=== PATIENT | female | born 1930 | race Caucasian/White ===

== ENCOUNTER 2017-02-05 14:16 | Inpatient (IN) | payer OTHER, MEDICAID ==
[~2017-02-05] VITALS: Ht 160 cm; Wt 93.4 kg
[~2017-02-05 14:16] MED LIST: AMIO200T7 PO; AMLO5TAB2 PO; CARV6.252 PO; DOCU250C14 PO; FAMO20TA8 PO; LACT10SO7 PO; RIVA10TA PO; SIMV10TA6 PO; VALS160T2 PO
--- NOTE | 2017-02-05 14:30 | NUR ---
pt is in room #1b. dr Huff evaluated the pt.
[2017-02-05] MEDS ORDERED: RIVA10TA PO (15:00)
[2017-02-05] MEDS ORDERED: BUDE10.22 INH (15:00)
[2017-02-05] MEDS ORDERED: IBUP-1955 PO (15:00)
[2017-02-05] MEDS ORDERED: VALS160T2 PO (15:00)
[2017-02-05] MEDS ORDERED: AMIO100T4 PO (15:00)
[2017-02-05] MEDS ORDERED: TRAZ-144 PO (15:00)
[2017-02-05] MEDS ORDERED: HYDR-4077 PO (15:00)
[2017-02-05] MEDS ORDERED: LEVO88TA5 PO (15:00)
[2017-02-05] MEDS ORDERED: FERR-58 PO (15:00)
[2017-02-05] MEDS ORDERED: METO25TA6 PO (15:00)
[2017-02-05] MEDS ORDERED: OSCAL PO (15:00)
[2017-02-05] MEDS ORDERED: CHOL40002 PO (15:00)
[2017-02-05] MEDS ORDERED: OLAN2.5T3 PO (15:00)
[2017-02-05] MEDS ORDERED: DULO60CA45 PO (15:00)
[2017-02-05] MEDS ORDERED: ACETAMINOPHEN 325 MG TABLET PO ONE (15:00)
[2017-02-05] MEDS ORDERED: SIMV10TA2 PO (15:00)
[2017-02-05] MEDS ORDERED: NIFE30TA89 PO (15:00)
[2017-02-05] MEDS ORDERED: HYDR-3326 PO (15:00)
[2017-02-05] MEDS ORDERED: BUSPAR PO (15:00)
[2017-02-05] MEDS ORDERED: ACETAMINOPHEN ES 500 MG TABLET ONE (15:08)
[2017-02-05 15:25] LABS: BASOPHILS # (AUTO) 0.3 K/uL (0.0-8.0); BASOPHILS % (AUTO) 2.8 % (0.0-2.0); EOSINOPHILS # (AUTO) 0.1 K/uL (0.0-0.7); EOSINOPHILS % (AUTO) 0.7 % (0.0-7.0); HEMATOCRIT 35.1 % (37-47); HEMOGLOBIN 11.5 G/DL (12.0-16.0); LYMPHOCYTES # (AUTO) 0.8 K/UL (0.8-4.8); LYMPHOCYTES % (AUTO) 7.6 % (20.5-51.5); MEAN CORPUSCULAR HEMOGLOBIN 29.5 UUG (27.0-31.0); MEAN CORPUSCULAR HGB CONC 33 g/dL (32.0-37.0); MEAN CORPUSCULAR VOLUME 89.7 FL (81.0-99.0); MONOCYTES # (AUTO) 0.5 K/UL (0.1-1.30); MONOCYTES % (AUTO) 5.1 % (0.0-11.0); NEUTROPHILS % (AUTO) 83.8 % (38.5-71.5); PLATELET COUNT (AUTO) 640 K/UL (150-450); RED BLOOD CELL COUNT(AUTO) 3.91 MIL/UL (4.2-5.4); WHITE BLOOD COUNT (AUTO) 10.7 K/UL (4.0-11.2)
[2017-02-05 15:35] LABS: CARBON DIOXIDE 25 mmol/L (21-32); CHLORIDE 97 mmol/L (98-107); CREATININE 1.6 mg/dL (0.6-1.3); GLUCOSE 129 mg/dL (74-106); POTASSIUM 4.7 mmol/L (3.5-5.1); UREA NITROGEN, BLOOD 15 mg/dL (7-18)
[2017-02-05 15:41] LABS: ACETAMINOPHEN 12.1 ug/mL (10-30); ALANINE AMINOTRANSFERASE 9 U/L (14-59); ALKALINE PHOSPHATASE 138 U/L (50-136); ASPARTATE AMINOTRANSFERASE 13 U/L (15-37); BAND % (MANUAL) 3 % (0-10); BILIRUBIN,DIRECT 0.2 mg/dL (0.0-0.2); BILIRUBIN,TOTAL 0.5 mg/dL (0.2-1.0); LYMPHOCYTES % (MANUAL) 9 % (20-40); MONOCYTES % (MANUAL) 10 % (2-10); NEUTROPHILS % (MANUAL) 78 % (42-75); TOTAL PROTEIN, SERUM 7.6 g/dL (6.4-8.2)
[2017-02-05 15:43] LABS: ETHANOL < 3 MG/DL (0-0)
[2017-02-05 16:53] LABS: *BILIRUBIN,URIN NEGATIVE (NEGATIVE); *BLOOD, URINE NEGATIVE (NEGATIVE); *COLOR,URINE YELLOW (YELLOW); *KETONES,URINE NEGATIVE (NEGATIVE); *PROTEIN,URINE 2+ (NEGATIVE); *UROBILINOGEN,URINE 0.2 E.U./dl (NORMAL); LEUKOCYTE ESTERASE ,URINE TRACE (NEGATIVE); NITRITE, URINE NEGATIVE (NEGATIVE); PH,URINE 7.5 (5.0-8.0); UGLUCOSE NEGATIVE (NEGATIVE)
[2017-02-05 16:59] LABS: *CLARITY,URINE HAZY (CLEAR)
[2017-02-05 17:01] LABS: RBC,URINE 0-3 /HPF (0-3)
[2017-02-05 17:02] LABS: *AMPHETAMINE, URINE NEGATIVE (NEGATIVE); *BARBITURATE, URINE NEGATIVE (NEGATIVE); *CANNABINOID, URINE NEGATIVE (NEGATIVE); *COCCAINE, URINE NEGATIVE (NEGATIVE); *OPIATE, URINE POSITIVE (NEGATIVE); *PHENCYCLIDINE SCREEN,URINE NEGATIVE (NEGATIVE); MUCUS,URINE FEW /LPF (0-FEW); SQUAMOUS EPITHELIAL CELL,UR FEW /HPF (NONE SEEN)
--- NOTE | 2017-02-05 17:56 | NUR ---
PT IS IN ROOM #1B WITH HER FRANCOISE.. DANIA COURTNEY EVALUATED THE PT.
--- NOTE | 2017-02-05 19:14 | NUR ---
Assumed care of patient from Philippe PEREZ. Patient stable, awaiting MHU admission. Spoke with Jose Casas LCSW, patient is authorized for admission to MHU , approved by insurance.
--- NOTE | 2017-02-05 19:44 | NUR ---
Pt. admitted to MHU , under care of Dr. Funk/Dr. Will. Dx: Psychosis. On 5150 hold starting 02/05/17. Report to MHU given by TAVO briceno RN, Philippe Pepe Belongs List completed, all belongings with patient taken to unit.
[2017-02-05] MEDS ORDERED: TEMAZEPAM 7.5 MG CAPSULE PO PRN (20:15)
[2017-02-05] MEDS ORDERED: CLONAZEPAM 0.5 MG TABLET PO SCH ×2 (20:15→21:30)
[2017-02-05] MEDS ORDERED: MAGNESIUM HYDROXIDE 30 ML LIQUID UDC PO PRN (20:15)
--- NOTE | 2017-02-05 20:30 | NUR ---
GPS: Patient admitted from ER to MHU room 137b , under care of Dr. Funk/Dr. Will. Dx: Psychosis. On 5150 hold starting 02/05/17.alert and oriented x3 ambulate with assistance.hx of multiple falls.c/o right shoulder pain.tylenol 650 mg po given. Belongs List completed.b/p 158/88 pulse 88 temp 98.0 resp 20 sat 96% in room air.assisted to use restroom voided yellow urine. sitting in ian chair near nursing station for safety.
[2017-02-05 21:28] VITALS: BP 158/88
[2017-02-05 21:48] VITALS: BP 158/88
[2017-02-05] MEDS ORDERED: ACETAMINOPHEN 325 MG TABLET ONE (22:01)
[2017-02-05] MEDS ORDERED: TEMAZEPAM 7.5 MG CAPSULE ONE (22:02)
[2017-02-05] MEDS: ACETAMINOPHEN 325 MG TABLET PO PRN (22:03)
--- NOTE | 2017-02-05 22:05 | NUR ---
GPS: PATIENT C/O INSOMNIA. RESTORIL 7.5 MG PO GIVEN.
[2017-02-05] MEDS ORDERED: METOPROLOL TARTRATE 25 MG TABLET PO ONE (22:06)
--- NOTE | 2017-02-05 22:10 | NUR ---
GPS: PATIENT C/O RIGHT SHOULDER PAIN. TYLENOL 650 MG PO GIVEN.
[2017-02-05] MEDS ORDERED: METOPROLOL TARTRATE 25 MG TABLET PO SCH (22:15)
[2017-02-05] MEDS ORDERED: METOPROLOL TARTRATE 25 MG TABLET ONE (22:22)
--- NOTE | 2017-02-05 23:10 | NUR ---
PATIENT STATED I AM FEELING LITTLE BETTER NOW. PRN EFFECTIVE.
--- NOTE | 2017-02-05 23:10 | NUR ---
PATIENT STILL AWAKE. PRN NOT EFFECTIVE FOR SLEEP.
[2017-02-06] MEDS: HYDROCODONE/APAP 5-325MG TABLET PO PRN ×3 (02:14→17:24)
--- NOTE | 2017-02-06 02:15 | NUR ---
KLONOPIN 0.25 MG GIVEN FOR ANXIETY.
--- NOTE | 2017-02-06 02:16 | NUR ---
PATIENT C/O RIGHT SHOULDER PAIN. NORCO 5/325 MG PO 1 TAB GIVEN FOR PAIN.
[2017-02-06] MEDS ORDERED: CLONAZEPAM 0.5 MG TABLET ONE (02:18)
[2017-02-06] MEDS ORDERED: HYDROCODONE/APAP 5-325MG TABLET ONE (02:18)
--- NOTE | 2017-02-06 03:15 | NUR ---
PATIENT STATED I AM FEELING CALM NOW. PRN EFFECTIVE FOR ANXIETY.
--- NOTE | 2017-02-06 03:16 | NUR ---
GPS: PATIENT STATED I AM FEELING BETTER NOW. PRN EFFECTIVE FOR PAIN.
--- NOTE | 2017-02-06 06:34 | NUR ---
GPS: REMAIN CALM AND COOPERATIVE WITH MEDS AND CARE.ON HIGH RISK OF FALL.ASSISTED WITH ADL'S. NO AGITATION NOTED THIS TIME. CONTINUE PLAN OF CARE.SLEPT 01:45 HRS THROUGH THE NIGHT AFTER SLEEPING MEDS GIVEN.
[2017-02-06 07:30] VITALS: BP 173/65
[2017-02-06] MEDS ORDERED: OSCAL 500 MG PO SCH (09:00)
[2017-02-06] MEDS ORDERED: RIVAROXABAN 10 MG TABLET PO SCH ×2 (09:00)
[2017-02-06] MEDS: NIFEdipine XL 30 MG TABSR PO SCH (09:07)
[2017-02-06] MEDS: LEVOTHYROXINE SODIUM 88 MCG TABLET PO SCH (09:07)
[2017-02-06] MEDS: FERROUS SULFATE 325 MG TABEC PO SCH (09:08)
[2017-02-06] MEDS: METOPROLOL TARTRATE 25 MG TABLET PO SCH ×2 (09:08→20:40)
[2017-02-06] MEDS: hydrALAZINE HCL 50 MG TABLET PO SCH ×2 (09:08→17:24)
[2017-02-06] MEDS: CALCIUM CARBONATE 500 MG TABLET PO SCH ×2 (09:10→20:36)
[2017-02-06] MEDS: CHOLECALCIFEROL 1,000 UNIT TABLET PO SCH (09:10)
[2017-02-06] MEDS: AMIODARONE HCL 200 MG TABLET PO SCH (09:17)
[2017-02-06] MEDS: busPIRone 5 MG TABLET PO SCH ×2 (13:00→17:24)
--- NOTE | 2017-02-06 16:30 | NUR ---
Pt.was Tx.from MHU to room #224 for Isolation reason-MRSA/contact isol./Pt A/A/Ox3, no s/s of acute distress ,denies pain @ time.Right shoulder post op icision covered with steri strips,C/D/I no s/s of inflammation noted.sitter 1:1.
[2017-02-06 17:20] VITALS: BP 197/73
[2017-02-06] MEDS: DULOXETINE 60 MG CAPSULE.DR PO SCH (17:41)
[2017-02-06 18:30] VITALS: BP 154/68
--- NOTE | 2017-02-06 18:30 | NUR ---
FAMILY MEMBERS AT BEDSIDE WAS UPDATED WITH PT.CONDITION AND PLAN OF CARE,NO S/S OF DISTRESS,PT.DENIES PAIN @ TIME.
[2017-02-06 20:00] VITALS: BP 175/66
[2017-02-06] MEDS: SIMVASTATIN 10 MG TABLET PO SCH (20:36)
[2017-02-06] MEDS: OLANZAPINE 2.5 MG TABLET PO SCH (20:36)
[2017-02-06] MEDS: MUPIROCIN 2% OINT 22 GM TUBE NS SCH (20:51)
[2017-02-06] MEDS: TRAZODONE 100 MG TABLET PO PRN (20:52)
[2017-02-07 04:00] VITALS: BP 165/65
--- NOTE | 2017-02-07 05:54 | NUR ---
PT SLEPT INTERMITTENTLY. WAS GIVEN TRAZODONE REQUESTED AND PRESCRIBED. ON 1:1 SITTER FOR SAFETY. NO SI. SAFETY MAINTAINED. DENIES PAIN. CALL LIGHT WITHIN REACH.
--- NOTE | 2017-02-07 06:59 | NUR ---
SLEPT 8 HRS TOTAL.
[2017-02-07] MEDS: CALCIUM CARBONATE 500 MG TABLET PO SCH ×2 (07:59→20:30)
[2017-02-07] MEDS: LEVOTHYROXINE SODIUM 88 MCG TABLET PO SCH (07:59)
[2017-02-07] MEDS: AMIODARONE HCL 200 MG TABLET PO SCH (08:00)
--- NOTE | 2017-02-07 08:00 | NUR ---
Pt is in no acute distress. 1:1 sitter for safety due to pt is on a HOLD. Pt noted right surgical incision with steri strips. No redness noted on site. Pt unable to have a FULL ROM on right shoulder.
[2017-02-07] MEDS: DULOXETINE 60 MG CAPSULE.DR PO SCH (08:01)
[2017-02-07] MEDS: HYDROCODONE/APAP 5-325MG TABLET PO PRN ×3 (08:01→22:41)
[2017-02-07] MEDS: NIFEdipine XL 30 MG TABSR PO SCH (08:01)
[2017-02-07] MEDS: CHOLECALCIFEROL 1,000 UNIT TABLET PO SCH (08:01)
[2017-02-07] MEDS: busPIRone 5 MG TABLET PO SCH ×3 (08:02→17:07)
[2017-02-07] MEDS: FERROUS SULFATE 325 MG TABEC PO SCH (08:02)
[2017-02-07] MEDS: MUPIROCIN 2% OINT 22 GM TUBE NS SCH ×2 (08:02→20:30)
[2017-02-07] MEDS: hydrALAZINE HCL 50 MG TABLET PO SCH ×2 (08:02→17:07)
[2017-02-07] MEDS: METOPROLOL TARTRATE 25 MG TABLET PO SCH ×2 (08:02→20:30)
--- NOTE | 2017-02-07 11:52 | NUR ---
UR Note: ALIDA called N Shahrzad Gunderson and left clinicals on her voicemail. Patient was initially authorized for 02/05/17-02/07/17 with review due today. Awaiting authorization for additional days. AUTH# [id number] Addendum: 02/07/17 at 1556 by SOBEIDA IRWIN Received a call from Shahrzad stating that the patient has been authorized for 2 additional days (02/08/17-02/09/17) with review due on 02/09/17.
[2017-02-07 12:00] VITALS: BP 148/58
[2017-02-07] MEDS: MAG HYDROX/AL HYDROX/SIMETH 30 ML LIQUID UDC PO PRN ×2 (15:08→20:17)
--- NOTE | 2017-02-07 15:42 | NUR ---
Initial discharge instructions: The patient resides at her apartment [[address] [place] [address]; ] independently. She stated that she would like to return home upon discharge. SW will speak with patient, family, and MD regarding most appropriate discharge plan. SS will form a safe and proper discharge.
[2017-02-07 15:44] VITALS: BP 147/59
[2017-02-07] MEDS: RIVAROXABAN 15 MG TABLET PO SCH (17:08)
--- NOTE | 2017-02-07 17:20 | NUR ---
Pt was cooperative today. Pt took all her pills without any hesitation. Pt states that applying ice pack on her right surgical shoulder was effective on controlling her pain in addition to her pain Meds. Pt is in no acute distress. 1:1 sitter at bedside for safety effective. PT is in no acute distress.
[2017-02-07] MEDS: CLONAZEPAM 0.5 MG TABLET PO PRN (19:06)
--- NOTE | 2017-02-07 20:00 | NUR ---
RECEIVED PATIENT AWAKE IN BED WITH SITTER AT BEDSIDE. PATIENT IS A/O X3. C/O DISCOMFORT IN UPPER ABDOMEN. PATIENT C/O STOMACH ACHE BUT CONTINUES TO EAT. VSS. STERI-STRIPS NOTED TO RIGHT SHOULDER, C/D/I. NO RESP. DISTRESS NOTED. VSS. BED ALARM ON, CALL LIGHT IN REACH. ALL NEEDS ATTENDED. WILL CONTINUE TO MONITOR AND ASSESS.
--- NOTE | 2017-02-07 20:20 | NUR ---
PATIENT GIVEN MYLANTA 30ML PO PRN FOR UPSET STOMACH. WILL CONTINUE TO MONITOR.
[2017-02-07 20:27] VITALS: BP 151/63
[2017-02-07] MEDS: OLANZAPINE 2.5 MG TABLET PO SCH (20:30)
[2017-02-07] MEDS: SIMVASTATIN 10 MG TABLET PO SCH (20:30)
[2017-02-07 23:00] VITALS: BP 138/60
[2017-02-07] MEDS: TRAZODONE 100 MG TABLET PO PRN (23:19)
[2017-02-08] MEDS: hydrALAZINE HCL 50 MG TABLET PO SCH ×2 (08:38→16:35)
[2017-02-08] MEDS: FERROUS SULFATE 325 MG TABEC PO SCH (08:38)
[2017-02-08] MEDS: METOPROLOL TARTRATE 25 MG TABLET PO SCH ×2 (08:39→20:42)
[2017-02-08] MEDS: CHOLECALCIFEROL 1,000 UNIT TABLET PO SCH (08:39)
[2017-02-08] MEDS: AMIODARONE HCL 200 MG TABLET PO SCH (08:39)
[2017-02-08] MEDS: LEVOTHYROXINE SODIUM 88 MCG TABLET PO SCH (08:39)
[2017-02-08] MEDS: busPIRone 5 MG TABLET PO SCH ×3 (08:39→16:35)
[2017-02-08] MEDS: CALCIUM CARBONATE 500 MG TABLET PO SCH ×2 (08:40→20:38)
[2017-02-08] MEDS: NIFEdipine XL 30 MG TABSR PO SCH (08:40)
[2017-02-08] MEDS: DULOXETINE 60 MG CAPSULE.DR PO SCH (08:40)
[2017-02-08] MEDS: HYDROCODONE/APAP 5-325MG TABLET PO PRN ×3 (08:40→20:38)
[2017-02-08] MEDS: MUPIROCIN 2% OINT 22 GM TUBE NS SCH ×2 (08:41→20:41)
[2017-02-08 09:00] VITALS: BP 163/71
[2017-02-08 12:00] VITALS: BP 134/57
--- NOTE | 2017-02-08 13:00 | NUR ---
Spoke with SUMANTH CESPEDES (DAUGHTER) tel [phone] Gave DPOA copy and Advance decretive copy put on chart. Daughter wanted to speak with health care law specialist. Called EDMAR no answer. Gave Sunita phone # to SUMANTH and planed to call her tomorrow.
--- NOTE | 2017-02-08 14:00 | NUR ---
Notified DR lakhani to adjust bp meds due to pts bp has been on the SBPs of 150s. Awaiting further orders.
[2017-02-08 15:08] VITALS: BP 130/85
[2017-02-08] MEDS: RIVAROXABAN 15 MG TABLET PO SCH (16:37)
[2017-02-08] MEDS: ACETAMINOPHEN 325 MG TABLET PO PRN ×2 (18:25→23:00)
--- NOTE | 2017-02-08 18:44 | NUR ---
Pt has been alert and oriented x 4. Pt takes pills fine. Pt forgetfull at times and ask same questions all over again. Call light is within reach.
--- NOTE | 2017-02-08 20:00 | NUR ---
PATIENT AWAKE IN BED WITH SITTER AT BEDSIDE. PATIENT IS A/O X3. FORGETFUL AT TIMES. C/O PAIN 4/10 IN RIGHT SHOULDER. PATIENT AWARE THAT PAIN MEDICATION IS NOT DUE AT THIS TIME. VERBALIZED UNDERSTANDING. VSS. CALL LIGHT IN REACH. BED ALARM ON, ALL NEEDS ATTENDED. WILL CONTINUE TO MONITOR.
[2017-02-08] MEDS: OLANZAPINE 2.5 MG TABLET PO SCH (20:38)
[2017-02-08] MEDS: SIMVASTATIN 10 MG TABLET PO SCH (20:39)
--- NOTE | 2017-02-08 20:45 | NUR ---
PATIENT GIVEN NORCO 1 TAB PO PRN FOR PAIN. PATIENT COOPERATIVE AND COMPLIANT WITH HS MEDS. SITTER AT BEDSIDE. BED ALARM ON. CALL LIGHT IN REACH. ALL NEEDS ATTENDED. WILL CONTINUE TO MONITOR.
[2017-02-08] MEDS: TRAZODONE 100 MG TABLET PO PRN (23:00)
[2017-02-09] MEDS: HYDROCODONE/APAP 5-325MG TABLET PO PRN ×2 (05:45→20:38)
--- NOTE | 2017-02-09 05:45 | NUR ---
PATIENT AWAKE IN BED. C/O PAIN IN RIGHT SHOULDER. PATIENT GIVEN NORCO 1 TAB PO PRN FOR PAIN. WILL CONTINUE TO MONITOR. PATIENT NOTIFIED THAT PICTURE NEEDS TO BE TAKEN OF RIGHT SHOULDER FOR PICTURE DAY BUT PATIENT REFUSED FOR PATIENT TO BE TAKEN. PATIENT STATED, " I AM NOT HERE FOR MY SHOULDER, SO I DON'T NEED ANY PICTURE TAKEN." INFORMED PATIENT ON IMPORTANCE OF PICTURES BUT PATIENT STILL REFUSED.
[2017-02-09 05:46] VITALS: BP 170/63
--- NOTE | 2017-02-09 05:53 | NUR ---
PATIENTS BLOOD PRESSURE 170/63. ALL OTHER VSS. PATIENT BLOOD PRESSURES MEDS DUE THIS MORNING. NOTIFIED, DENTAL AMALGAM PROCESSOR AND PATIENT GIVEN ROUTINE HYDRALAZINE 50MG PO. WILL CONTINUE TO MONITOR AND ASSESS.
[2017-02-09] MEDS: hydrALAZINE HCL 50 MG TABLET PO SCH ×2 (05:58→16:59)
[2017-02-09 06:17] VITALS: BP 145/65
[2017-02-09 06:41] LABS: BASOPHILS # (AUTO) 0.1 K/uL (0.0-8.0); BASOPHILS % (AUTO) 0.8 % (0.0-2.0); EOSINOPHILS # (AUTO) 0.7 K/uL (0.0-0.7); EOSINOPHILS % (AUTO) 7.9 % (0.0-7.0); HEMATOCRIT 32.4 % (37-47); HEMOGLOBIN 10.6 G/DL (12.0-16.0); LYMPHOCYTES # (AUTO) 1.8 K/UL (0.8-4.8); LYMPHOCYTES % (AUTO) 21.5 % (20.5-51.5); MEAN CORPUSCULAR HEMOGLOBIN 29.3 UUG (27.0-31.0); MEAN CORPUSCULAR HGB CONC 33 g/dL (32.0-37.0); MEAN CORPUSCULAR VOLUME 89.2 FL (81.0-99.0); MONOCYTES # (AUTO) 0.9 K/UL (0.1-1.30); MONOCYTES % (AUTO) 10.4 % (0.0-11.0); NEUTROPHILS # (AUTO) 4.8 K/UL (1.8-8.9); NEUTROPHILS % (AUTO) 59.4 % (38.5-71.5); PLATELET COUNT (AUTO) 542 K/UL (150-450); RED BLOOD CELL COUNT(AUTO) 3.63 MIL/UL (4.2-5.4); WHITE BLOOD COUNT (AUTO) 8.3 K/UL (4.0-11.2)
--- NOTE | 2017-02-09 06:50 | NUR ---
PATIENT BP WNL. BP 145/65. ALL OTHER VSS. PATIENT SLEPT A TOTAL OF 4 HOURS AND 30 MINUTES. ALL NEEDS ATTENDED. WILL CONTINUE TO MONITOR.
[2017-02-09 06:55] LABS: ALANINE AMINOTRANSFERASE 12 U/L (14-59); ALKALINE PHOSPHATASE 113 U/L (50-136); ASPARTATE AMINOTRANSFERASE 11 U/L (15-37); BILIRUBIN,TOTAL 0.3 mg/dL (0.2-1.0); CARBON DIOXIDE 29 mmol/L (21-32); CHLORIDE 97 mmol/L (98-107); CREATININE 1.9 mg/dL (0.6-1.3); GLUCOSE 109 mg/dL (74-106); MAGNESIUM 2.1 mg/dL (1.8-2.4); PHOSPHOROUS 4.1 mg/dL (2.5-4.9); POTASSIUM 4.4 mmol/L (3.5-5.1); TOTAL PROTEIN, SERUM 6.7 g/dL (6.4-8.2); UREA NITROGEN, BLOOD 26 mg/dL (7-18)
[2017-02-09] MEDS: MUPIROCIN 2% OINT 22 GM TUBE NS SCH ×2 (09:28→20:38)
[2017-02-09] MEDS: CHOLECALCIFEROL 1,000 UNIT TABLET PO SCH (09:28)
[2017-02-09] MEDS: DULOXETINE 60 MG CAPSULE.DR PO SCH (09:29)
[2017-02-09] MEDS: METOPROLOL TARTRATE 25 MG TABLET PO SCH ×2 (09:29→20:38)
[2017-02-09] MEDS: busPIRone 5 MG TABLET PO SCH ×3 (09:29→16:59)
[2017-02-09] MEDS: CALCIUM CARBONATE 500 MG TABLET PO SCH ×2 (09:29→20:38)
[2017-02-09] MEDS: AMIODARONE HCL 200 MG TABLET PO SCH (09:29)
[2017-02-09] MEDS: LEVOTHYROXINE SODIUM 88 MCG TABLET PO SCH (09:30)
[2017-02-09] MEDS: NIFEdipine XL 30 MG TABSR PO SCH (09:30)
[2017-02-09] MEDS: FERROUS SULFATE 325 MG TABEC PO SCH (09:30)
[2017-02-09] MEDS: ACETAMINOPHEN 325 MG TABLET PO PRN (11:18)
[2017-02-09 11:30] VITALS: BP 159/61
--- NOTE | 2017-02-09 12:36 | NUR ---
UR Note: ALIDA called MHDaisy Gunderson and left clinicals on her voicemail. Patient was authorized for 02/08/17-02/09/17 with review due today (02/09/17). Awaiting authorization for additional days. AUTH# [id number]
[2017-02-09 15:42] VITALS: BP 135/53
[2017-02-09] MEDS: RIVAROXABAN 15 MG TABLET PO SCH (17:02)
--- NOTE | 2017-02-09 18:53 | NUR ---
PT IS LAYING IN BED COMFORTABLY. NO S/S OF RESPIRATORY DISTRESS NOTED. NO PAIN NOTED. ALL SAFETY NEEDS ARE MET. 1:1 SITTER FOR SAFETY. PT IS CALM AND COOPERATIVE.
--- NOTE | 2017-02-09 19:45 | NUR ---
RECEIVED PATIENT AWAKE IN BED. A/O X3. SITTER AT BEDSIDE. VSS. CALL LIGHT IN REACH. ALL NEEDS ATTENDED. WILL CONTINUE TO MONITOR.
[2017-02-09 20:00] VITALS: BP 138/56
[2017-02-09] MEDS: SIMVASTATIN 10 MG TABLET PO SCH (20:38)
[2017-02-09] MEDS: OLANZAPINE 2.5 MG TABLET PO SCH (20:38)
[2017-02-10] MEDS: ACETAMINOPHEN 325 MG TABLET PO PRN ×2 (00:11→15:46)
[2017-02-10] MEDS: TRAZODONE 100 MG TABLET PO PRN (00:11)
[2017-02-10] MEDS: CLONAZEPAM 0.5 MG TABLET PO PRN (03:31)
[2017-02-10 07:51] VITALS: BP 138/65
[2017-02-10] MEDS: DULOXETINE 60 MG CAPSULE.DR PO SCH (08:17)
[2017-02-10] MEDS: busPIRone 5 MG TABLET PO SCH ×3 (08:17→16:00)
[2017-02-10] MEDS: FERROUS SULFATE 325 MG TABEC PO SCH (08:17)
[2017-02-10] MEDS: CHOLECALCIFEROL 1,000 UNIT TABLET PO SCH (08:17)
[2017-02-10] MEDS: AMIODARONE HCL 200 MG TABLET PO SCH (08:17)
[2017-02-10] MEDS: CALCIUM CARBONATE 500 MG TABLET PO SCH ×2 (08:17→20:12)
[2017-02-10] MEDS: hydrALAZINE HCL 50 MG TABLET PO SCH ×3 (08:17→22:00)
[2017-02-10] MEDS: LEVOTHYROXINE SODIUM 88 MCG TABLET PO SCH (08:18)
[2017-02-10] MEDS: MUPIROCIN 2% OINT 22 GM TUBE NS SCH ×2 (08:18→20:13)
[2017-02-10] MEDS: NIFEdipine XL 30 MG TABSR PO SCH (08:18)
[2017-02-10] MEDS: METOPROLOL TARTRATE 25 MG TABLET PO SCH ×2 (08:18→20:13)
[2017-02-10] MEDS: IV NS 1000 ML 1,000 ML IV PRN (10:58)
[2017-02-10 13:01] LABS: *BILIRUBIN,URIN NEGATIVE (NEGATIVE); *BLOOD, URINE NEGATIVE (NEGATIVE); *CLARITY,URINE CLOUDY (CLEAR); *COLOR,URINE YELLOW (YELLOW); *KETONES,URINE NEGATIVE (NEGATIVE); *PROTEIN,URINE TRACE (NEGATIVE); *UROBILINOGEN,URINE 0.2 E.U./dl (NORMAL); LEUKOCYTE ESTERASE ,URINE TRACE (NEGATIVE); NITRITE, URINE POSITIVE (NEGATIVE); PH,URINE 6.5 (5.0-8.0); UGLUCOSE NEGATIVE (NEGATIVE)
[2017-02-10 13:13] LABS: RBC,URINE 0-3 /HPF (0-3)
[2017-02-10 13:14] LABS: BACTERIA,URINE MANY /HPF (NONE SEEN); SQUAMOUS EPITHELIAL CELL,UR FEW /HPF (NONE SEEN); WBC,URINE 20-50 /HPF (0-3)
[2017-02-10 15:56] VITALS: BP 143/53
--- NOTE | 2017-02-10 16:25 | NUR ---
UR Note: ALIDA spoke with ISAIAS Gunderson and she has authorized the patient for an additional day (02/10/17) with review due tomorrow, 02/11/17. AUTH# [id number] Addendum: 02/10/17 at 1631 by SOBEIDA IRWIN ALIDA spoke with ISAIAS Gunderson informing her that the patient is requiring SNF placement. Shahrzad referred LAIDA to [facility] to obtain authorization for SNF placement. ALIDA spoke with Rochelle Richardson at [facility] who stated that she will assist in finding SNF placement but that she is requiring a physician's note recommending SNF placement for the patient. ALIDA has asked the MD for this. Rochelle has faxed a list of contracted facilities to ALIDA to initiate placement process. ALIDA will fax these facilities.
[2017-02-10] MEDS: RIVAROXABAN 15 MG TABLET PO SCH (17:05)
--- NOTE | 2017-02-10 19:00 | NUR ---
PATIENT ALERT AWAKE, CONT ON CONTACT ISOLATION FOR MRSA NARES, CONT ON 1;1 SITTER FOR SAFETY, NO COMPLAIN OF PAIN AT THIS TIME, CONT TO MONITOR.
[2017-02-10 19:43] VITALS: BP 149/53
[2017-02-10] MEDS: SIMVASTATIN 10 MG TABLET PO SCH (20:12)
[2017-02-10] MEDS: OLANZAPINE 2.5 MG TABLET PO SCH (20:12)
[2017-02-10] MEDS: HYDROCODONE/APAP 5-325MG TABLET PO PRN (20:57)
--- NOTE | 2017-02-10 21:30 | NUR ---
PATIENT COMPLAIN OF CONSTIPATION, NOTIFY DR. SHINE WITH ORDER.
[2017-02-10] MEDS: MIRALAX 17 GM POWD.PACK PO SCH (21:56)
[2017-02-10] MEDS ORDERED: MIRALAX 17 GM POWD.PACK ONE (22:01)
[2017-02-11] MEDS: TRAZODONE 100 MG TABLET PO PRN (00:55)
[2017-02-11] MEDS: IV NS 1000 ML 1,000 ML IV PRN ×2 (00:56→14:25)
[2017-02-11] MEDS: CLONAZEPAM 0.5 MG TABLET PO PRN (04:16)
[2017-02-11 04:45] VITALS: BP 144/60
[2017-02-11] MEDS: hydrALAZINE HCL 50 MG TABLET PO SCH ×3 (05:28→22:00)
--- NOTE | 2017-02-11 05:58 | NUR ---
PATIENT AWAKE, ABLE TO MAKE NEEDS KNOWN, NO SOB NO CHEST PAIN, WITH EPISODES OF ANXIETY, REDIRECT PATIENT, ASSISTED TO BATHROOM FOR BLADDER ELIMINATION, NO BM YET AT THIS TIME. NO S/S OF DISTRESS.
--- NOTE | 2017-02-11 06:54 | NUR ---
PATIENT SLEPT 4HRS, ON AND OFF. CONT TO MONITOR.
[2017-02-11 06:58] LABS: BASOPHILS # (AUTO) 0.1 K/uL (0.0-8.0); BASOPHILS % (AUTO) 0.6 % (0.0-2.0); EOSINOPHILS # (AUTO) 0.5 K/uL (0.0-0.7); EOSINOPHILS % (AUTO) 5.7 % (0.0-7.0); HEMATOCRIT 31.3 % (37-47); HEMOGLOBIN 10.4 G/DL (12.0-16.0); LYMPHOCYTES # (AUTO) 1.5 K/UL (0.8-4.8); LYMPHOCYTES % (AUTO) 16.7 % (20.5-51.5); MEAN CORPUSCULAR HEMOGLOBIN 29.8 UUG (27.0-31.0); MEAN CORPUSCULAR HGB CONC 33 g/dL (32.0-37.0); MEAN CORPUSCULAR VOLUME 89.4 FL (81.0-99.0); MONOCYTES # (AUTO) 0.8 K/UL (0.1-1.30); NEUTROPHILS # (AUTO) 5.9 K/UL (1.8-8.9); PLATELET COUNT (AUTO) 490 K/UL (150-450); RED BLOOD CELL COUNT(AUTO) 3.49 MIL/UL (4.2-5.4); WHITE BLOOD COUNT (AUTO) 8.8 K/UL (4.0-11.2)
[2017-02-11 07:31] LABS: THYROID STIMULATING HORMONE 7.629 mIU/mL (0.358-3.740)
--- NOTE | 2017-02-11 07:34 | NUR ---
PT RECEIVED IN BED SLEEPING,NO C/O PAIN NOTED.V/S ARE STABLE.SITTER AT BED SIDE FOR SAFETY
[2017-02-11 07:55] VITALS: BP 167/60
[2017-02-11 08:04] LABS: ALANINE AMINOTRANSFERASE 14 U/L (14-59); ALKALINE PHOSPHATASE 111 U/L (50-136); ASPARTATE AMINOTRANSFERASE 15 U/L (15-37); BILIRUBIN,TOTAL 0.2 mg/dL (0.2-1.0); CARBON DIOXIDE 29 mmol/L (21-32); CHLORIDE 98 mmol/L (98-107); CREATININE 1.7 mg/dL (0.6-1.3); GLUCOSE 110 mg/dL (74-106); PHOSPHOROUS 3.9 mg/dL (2.5-4.9); POTASSIUM 4.2 mmol/L (3.5-5.1); TOTAL PROTEIN, SERUM 6.7 g/dL (6.4-8.2); UREA NITROGEN, BLOOD 21 mg/dL (7-18)
[2017-02-11] MEDS: LEVOTHYROXINE SODIUM 88 MCG TABLET PO SCH (08:20)
[2017-02-11] MEDS: CALCIUM CARBONATE 500 MG TABLET PO SCH ×2 (08:20→20:21)
[2017-02-11] MEDS: CHOLECALCIFEROL 1,000 UNIT TABLET PO SCH (08:20)
[2017-02-11] MEDS: METOPROLOL TARTRATE 25 MG TABLET PO SCH ×2 (08:20→20:24)
[2017-02-11] MEDS: MIRALAX 17 GM POWD.PACK PO SCH (08:20)
[2017-02-11] MEDS: DULOXETINE 60 MG CAPSULE.DR PO SCH (08:20)
[2017-02-11] MEDS: busPIRone 5 MG TABLET PO SCH ×3 (08:20→16:12)
[2017-02-11] MEDS: NIFEdipine XL 30 MG TABSR PO SCH (08:20)
[2017-02-11] MEDS: AMIODARONE HCL 200 MG TABLET PO SCH (08:20)
[2017-02-11] MEDS: FERROUS SULFATE 325 MG TABEC PO SCH (08:20)
[2017-02-11] MEDS: MUPIROCIN 2% OINT 22 GM TUBE NS SCH ×2 (08:21→20:20)
--- NOTE | 2017-02-11 10:00 | NUR ---
PT SEEN BY DR FOSS
--- NOTE | 2017-02-11 11:11 | NUR ---
UR Note: ALIDA called Shahrzad GILMORE with N and requested authorization through the weekend. Clinicals were left on voicemail, awaiting call back. AUTH# [id number] Addendum: 02/11/17 at 1619 by JASON IRWIN ALIDA spoke with Shahrzad GILMORE who authorized 02/11/17-02/13/17 with review due Tuesday02/14/17. Authorization# [id number]
[2017-02-11 12:30] VITALS: BP 150/52
[2017-02-11 16:08] VITALS: BP 138/53
[2017-02-11] MEDS: RIVAROXABAN 15 MG TABLET PO SCH (17:02)
[2017-02-11] MEDS: HYDROCODONE/APAP 5-325MG TABLET PO PRN (17:18)
[2017-02-11 20:00] VITALS: BP 151/53
--- NOTE | 2017-02-11 20:00 | NUR ---
PATIENT AWAKE, NO SOB NO CHEST PAIN, CONT ON PAIN MANAGEMENT OF R SHOULDER, TAKES ALL MEDICATIONS, BP MEDS HELP HR BELOW 60 NO DISTRESS.
[2017-02-11] MEDS: SIMVASTATIN 10 MG TABLET PO SCH (20:21)
[2017-02-11] MEDS: OLANZAPINE 2.5 MG TABLET PO SCH (20:21)
[2017-02-11] MEDS: ACETAMINOPHEN 325 MG TABLET PO PRN (20:22)
--- NOTE | 2017-02-11 22:02 | NUR ---
PATIENT IV ON LEFT ANTECUBITAL NOT WORKING PROPERLY, REINSERTED ON RIGHT FOREARM TOLERATE WELL.
[2017-02-12] MEDS: HYDROCODONE/APAP 5-325MG TABLET PO PRN ×3 (00:03→20:43)
[2017-02-12] MEDS: TRAZODONE 100 MG TABLET PO PRN (01:11)
[2017-02-12 05:58] VITALS: BP 140/51
[2017-02-12] MEDS: hydrALAZINE HCL 50 MG TABLET PO SCH ×3 (06:00→22:24)
--- NOTE | 2017-02-12 06:11 | NUR ---
PATIENT SLEPT 7 TO 8 HRS, CONT ON PAIN MANAGEMENT OF R SHOULDERS, HYDRALAZINE MEDS HELD HR BELOW 60, NO S/S OF DISTRESS.
--- NOTE | 2017-02-12 07:30 | NUR ---
RECEIVED PATIENT AWAKE IN BED. A/O X3. SITTER AT BEDSIDE. VSS. CALL LIGHT IN REACH. ALL NEEDS ATTENDED. WILL CONTINUE TO MONITOR.
[2017-02-12] MEDS: FERROUS SULFATE 325 MG TABEC PO SCH (08:09)
[2017-02-12] MEDS: CHOLECALCIFEROL 1,000 UNIT TABLET PO SCH (08:09)
[2017-02-12] MEDS: MIRALAX 17 GM POWD.PACK PO SCH (08:09)
[2017-02-12] MEDS: CALCIUM CARBONATE 500 MG TABLET PO SCH ×2 (08:09→20:41)
[2017-02-12] MEDS: LEVOTHYROXINE SODIUM 88 MCG TABLET PO SCH (08:10)
[2017-02-12] MEDS: DULOXETINE 60 MG CAPSULE.DR PO SCH (08:10)
[2017-02-12] MEDS: METOPROLOL TARTRATE 25 MG TABLET PO SCH ×2 (08:10→20:42)
[2017-02-12] MEDS: busPIRone 5 MG TABLET PO SCH ×3 (08:10→16:04)
[2017-02-12 08:11] VITALS: BP 169/63
[2017-02-12] MEDS: NIFEdipine XL 30 MG TABSR PO SCH (08:11)
[2017-02-12] MEDS: AMIODARONE HCL 200 MG TABLET PO SCH (08:11)
[2017-02-12] MEDS: MUPIROCIN 2% OINT 22 GM TUBE NS SCH ×2 (10:12→20:41)
[2017-02-12] MEDS: CLONAZEPAM 0.5 MG TABLET PO PRN (13:24)
[2017-02-12 16:01] VITALS: BP 143/50
[2017-02-12] MEDS: RIVAROXABAN 15 MG TABLET PO SCH (17:06)
[2017-02-12] MEDS: ACETAMINOPHEN 325 MG TABLET PO PRN (17:18)
--- NOTE | 2017-02-12 19:40 | NUR ---
PT RECEIVED IN BED, AWAKE. 1;1 SITTER AT BEDSIDE FOR SAFETY. V/S STABLE. NO ACUTE DISTRESS NOTED. PT COMPLAINS OF RIGHT SHOULDER PAIN. WILL PROVIDE PAIN MEDICATION ORDERED. D/C RAC IV DUE TO BEING DISLODGED. NEW IV STARTED RIGHT WRIST. IVF INFUSING. ISOLATION PRECAUTIONS IN PLACE. SAFETY MEASURE IMPLEMENTED. CALL LIGHT WITHIN REACH. WILL CONT TO MONITOR.
[2017-02-12] MEDS: SIMVASTATIN 10 MG TABLET PO SCH (20:42)
[2017-02-12] MEDS: OLANZAPINE 2.5 MG TABLET PO SCH (20:42)
[2017-02-12] MEDS: IV NS 1000 ML 1,000 ML IV PRN (22:23)
[2017-02-13] MEDS: TRAZODONE 100 MG TABLET PO PRN (00:55)
--- NOTE | 2017-02-13 05:41 | NUR ---
END OF SHIFT NOTES. PT SLEPT WELL THROUGHOUT SHIFT. 1:1 SITTER AT BEDSIDE FOR SAFETY. PT IN STABLE CONDITION. NO ACUTE DISTRESS NOTED. NEEDS ATTENDED. PROVIDED PAIN MED ORDERED. IVF INFUSING. SAFETY MAINTAINED. CALL LIGHT WITHIN REACH.
[2017-02-13] MEDS: hydrALAZINE HCL 50 MG TABLET PO SCH ×3 (06:26→22:00)
[2017-02-13 06:27] VITALS: BP 150/62
--- NOTE | 2017-02-13 07:45 | NUR ---
RECEIVED PATIENT AWAKE IN BED WITH SITTER AT BEDSIDE. PATIENT IS A/O X3. STERI-STRIPS NOTED TO RIGHT SHOULDER, C/D/I. NO RESP. DISTRESS NOTED. VSS, CALL LIGHT IN REACH. ALL NEEDS ATTENDED. WILL CONTINUE TO MONITOR AND ASSESS.
[2017-02-13] MEDS: CHOLECALCIFEROL 1,000 UNIT TABLET PO SCH (08:06)
[2017-02-13] MEDS: DULOXETINE 60 MG CAPSULE.DR PO SCH (08:06)
[2017-02-13] MEDS: FERROUS SULFATE 325 MG TABEC PO SCH (08:06)
[2017-02-13] MEDS: LEVOTHYROXINE SODIUM 88 MCG TABLET PO SCH (08:07)
[2017-02-13] MEDS: NIFEdipine XL 30 MG TABSR PO SCH (08:07)
[2017-02-13] MEDS: MIRALAX 17 GM POWD.PACK PO SCH (08:07)
[2017-02-13] MEDS: AMIODARONE HCL 200 MG TABLET PO SCH (08:07)
[2017-02-13] MEDS: busPIRone 5 MG TABLET PO SCH ×3 (08:07→16:07)
[2017-02-13] MEDS: CALCIUM CARBONATE 500 MG TABLET PO SCH ×2 (08:07→20:41)
[2017-02-13] MEDS: METOPROLOL TARTRATE 25 MG TABLET PO SCH ×2 (08:07→20:42)
[2017-02-13] MEDS: MUPIROCIN 2% OINT 22 GM TUBE NS SCH ×2 (08:09→20:40)
[2017-02-13 08:15] VITALS: BP 158/59
[2017-02-13] MEDS: CEPHALEXIN MONOHYDRATE 250 MG CAPSULE PO SCH ×3 (08:34→21:22)
[2017-02-13] MEDS: HYDROCODONE/APAP 5-325MG TABLET PO PRN ×2 (10:36→19:54)
--- NOTE | 2017-02-13 10:40 | NUR ---
PT C/O PAIN IN THE SHOULDER ,NORCO PO GIVEN PER MD ORDERS.
[2017-02-13 15:39] VITALS: BP 136/53
[2017-02-13] MEDS: RIVAROXABAN 15 MG TABLET PO SCH (17:11)
--- NOTE | 2017-02-13 17:59 | NUR ---
END OF SHIFT NOTES. PT SLEPT THROUGHOUT SHIFT. 1:1 SITTER AT BEDSIDE FOR SAFETY. PT IN STABLE CONDITION. NO ACUTE DISTRESS NOTED. NEEDS ATTENDED. PROVIDED PAIN MED ORDERED. SAFETY MAINTAINED. CALL LIGHT WITHIN REACH.
--- NOTE | 2017-02-13 20:00 | NUR ---
RECEIVED PATIENT AWAKE IN BED WITH 1:1 SITTER AT BEDSIDE. PATIENT IS A/O X4. C/O PAIN IN RIGHT SHOULDER. PATIENT GIVEN NORCO 1 TAB PO PRN FOR PAIN. STERI-STRIPS NOTED TO RIGHT SHOULDER, INTACT. VSS. NO RESP. DISTRESS NOTED. CALL LIGHT IN REACH. ALL NEEDS ATTENDED. WILL CONTINUE TO MONITOR AND ASSESS.
[2017-02-13 20:15] VITALS: BP 150/62
[2017-02-13] MEDS: SIMVASTATIN 10 MG TABLET PO SCH (20:40)
[2017-02-13] MEDS: OLANZAPINE 2.5 MG TABLET PO SCH (20:41)
[2017-02-13] MEDS: ACETAMINOPHEN 325 MG TABLET PO PRN (22:37)
[2017-02-14] MEDS: TRAZODONE 100 MG TABLET PO PRN ×2 (00:07→22:38)
[2017-02-14] MEDS: HYDROCODONE/APAP 5-325MG TABLET PO PRN ×3 (02:24→21:06)
--- NOTE | 2017-02-14 02:25 | NUR ---
PATIENT AWAKE IN BED. VERY RESTLESS. C/O PAIN IN RIGHT SHOULDER. PATIENT GIVEN NORCO 1 TAB PO PRN FOR PAIN. SITTER AT BEDSIDE FOR SAFETY. WILL CONTINUE TO MONITOR AND ASSESS.
[2017-02-14] MEDS: hydrALAZINE HCL 50 MG TABLET PO SCH ×3 (05:21→22:00)
--- NOTE | 2017-02-14 06:28 | NUR ---
RECHECKED PATIENTS BLOOD PRESSURE AFTER ROUTINE HYDRALAZINE 50MG PO WAS GIVEN. BP NOW 147/62. TRENDING DOWN. WILL CONTINUE TO MONITOR. SITTER AT BEDSIDE FOR SAFETY. PATIENT SLEPT 1 HOUR AND 45 MINUTES. ALL NEEDS ATTENDED.
[2017-02-14 06:35] LABS: BASOPHILS # (AUTO) 0.1 K/uL (0.0-8.0); BASOPHILS % (AUTO) 0.8 % (0.0-2.0); EOSINOPHILS # (AUTO) 0.7 K/uL (0.0-0.7); EOSINOPHILS % (AUTO) 8.1 % (0.0-7.0); HEMATOCRIT 32.2 % (37-47); HEMOGLOBIN 10.4 G/DL (12.0-16.0); LYMPHOCYTES # (AUTO) 1.7 K/UL (0.8-4.8); LYMPHOCYTES % (AUTO) 20.5 % (20.5-51.5); MEAN CORPUSCULAR HEMOGLOBIN 28.9 UUG (27.0-31.0); MEAN CORPUSCULAR HGB CONC 32 g/dL (32.0-37.0); MEAN CORPUSCULAR VOLUME 89.3 FL (81.0-99.0); MONOCYTES # (AUTO) 0.7 K/UL (0.1-1.30); MONOCYTES % (AUTO) 8.1 % (0.0-11.0); NEUTROPHILS # (AUTO) 5.1 K/UL (1.8-8.9); NEUTROPHILS % (AUTO) 62.5 % (38.5-71.5); PLATELET COUNT (AUTO) 420 K/UL (150-450); RED BLOOD CELL COUNT(AUTO) 3.61 MIL/UL (4.2-5.4); WHITE BLOOD COUNT (AUTO) 8.3 K/UL (4.0-11.2)
[2017-02-14 06:50] LABS: ALANINE AMINOTRANSFERASE 9 U/L (14-59); ALKALINE PHOSPHATASE 110 U/L (50-136); ASPARTATE AMINOTRANSFERASE 11 U/L (15-37); BILIRUBIN,TOTAL 0.3 mg/dL (0.2-1.0); CARBON DIOXIDE 31 mmol/L (21-32); CHLORIDE 100 mmol/L (98-107); CREATININE 1.4 mg/dL (0.6-1.3); GLUCOSE 101 mg/dL (74-106); MAGNESIUM 1.9 mg/dL (1.8-2.4); PHOSPHOROUS 4.1 mg/dL (2.5-4.9); POTASSIUM 4.1 mmol/L (3.5-5.1); TOTAL PROTEIN, SERUM 6.3 g/dL (6.4-8.2); UREA NITROGEN, BLOOD 18 mg/dL (7-18)
[2017-02-14] MEDS: SULFAMETH/TRIMETH 800/160 MG TABLET PO SCH ×2 (08:15→20:09)
[2017-02-14] MEDS: DULOXETINE 60 MG CAPSULE.DR PO SCH (08:15)
[2017-02-14] MEDS: MIRALAX 17 GM POWD.PACK PO SCH (08:15)
[2017-02-14] MEDS: CHOLECALCIFEROL 1,000 UNIT TABLET PO SCH (08:15)
[2017-02-14] MEDS: AMIODARONE HCL 200 MG TABLET PO SCH (08:16)
[2017-02-14] MEDS: CALCIUM CARBONATE 500 MG TABLET PO SCH ×2 (08:16→20:09)
[2017-02-14] MEDS: FERROUS SULFATE 325 MG TABEC PO SCH (08:16)
[2017-02-14] MEDS: LEVOTHYROXINE SODIUM 88 MCG TABLET PO SCH (08:16)
[2017-02-14] MEDS: NIFEdipine XL 30 MG TABSR PO SCH (08:16)
[2017-02-14] MEDS: busPIRone 5 MG TABLET PO SCH ×3 (08:16→16:31)
[2017-02-14] MEDS: METOPROLOL TARTRATE 25 MG TABLET PO SCH ×2 (08:17→20:46)
[2017-02-14 08:23] VITALS: BP 156/62
--- NOTE | 2017-02-14 10:20 | NUR ---
Rail Car Loader ALIDA spoke with Rochelle Richardson at [facility] today who stated that they will provide authorization for SNF placement for the patient. ALIDA faxed the following facilities on 02/10/17: 1.) [facility] - no due to psych history 2.) [facility] - awaiting response 3.) [facility] 4.) [facility] - awaiting response 5[facility] - no due to psych history 6.) [facility] - awaiting response 7.) [facility] - awaiting response
[2017-02-14 15:24] VITALS: BP 133/55
--- NOTE | 2017-02-14 16:33 | NUR ---
Tentative DC Note: The patient may possibly be discharged today to [facility] [[address] [place] [address] ] via ambulance set up by [employer], contact: Rochelle Richardson . Rochelle is currently working on authorization for SNF placement at this facility. Spoke with Sheyla at the facility who stated that they will accept the patient once they are provided with an LAUREN from [employer] insurance. Spoke with the patients daughter Erika Alston and she is aware and agreeable with the discharge plan. Spoke with the patient and she is aware and agreeable with the discharge plan. The patient will follow-up with locker operator Dr. Holly and psychiatrist Dr. Stone at the facility. The patient was provided with the brief intervention for substance abuse and was referred to [facility] , [facility] , and [facility] . Patient's daughter Erika is aware that [facility] insurance may not authorize SNF placement and that she will have to olive picker the patient and take her home tonight if they are unable to place the patient. Eloisa James is awaiting call from patient's nurse Kaitlin or [place] informing her of the DC plan.
[2017-02-14] MEDS: RIVAROXABAN 15 MG TABLET PO SCH (17:15)
--- NOTE | 2017-02-14 17:45 | NUR ---
marcos from the facility called and she said they received the authorization but for wrong facility so pt will be discharged tomorrow morning,mhu charge nurse made aware
--- NOTE | 2017-02-14 17:56 | NUR ---
pt daughter leonardo notified regarding transfer the pt [place] [facility]
--- NOTE | 2017-02-14 17:56 | NUR ---
nursing supervisor blueprinting and photocopy called and said transfer the pt to room 137a
--- NOTE | 2017-02-14 17:57 | NUR ---
transfer the pt to u via wheel chair.
--- NOTE | 2017-02-14 17:58 | NUR ---
leave the massage via phone to [place] child protective services social worker for mhu regarding the pt discharge .
[2017-02-14] MEDS: OLANZAPINE 2.5 MG TABLET PO SCH (20:09)
[2017-02-14] MEDS: SIMVASTATIN 10 MG TABLET PO SCH (20:10)
[2017-02-14 20:43] VITALS: BP 148/60
--- NOTE | 2017-02-14 21:55 | NUR ---
PATIENT RECEIVED SITTING IN CHAIR IN FRONT OF NURSING STATION. PATIENT ALERT/ORIENTED X2 PATIENT FORGETFUL AT TIMES. PATIENT AMBULATORY WITH MINIMAL ASSISTANCE. PATIENT COMPLAINT WITH MEDICATION. PATIENT STATES 7/10 PAIN TO RIGHT SHOULDER PAIN MEDICATION GIVEN ORDERED. PATIENT IS EASILY IRRITABLE RESPONDS WELL WITH REDIRECTION. BED IN LOWEST POSITION, BED LOCKED, AND BED ALARM ON WHILE IN BED.
[2017-02-15] MEDS: CLONAZEPAM 0.5 MG TABLET PO PRN (01:12)
[2017-02-15] MEDS: hydrALAZINE HCL 50 MG TABLET PO SCH ×2 (06:09→13:39)
[2017-02-15 07:44] VITALS: BP 184/73
--- NOTE | 2017-02-15 08:00 | NUR ---
GPS: Nursing Notes: Per Protocol: 1:1 Sitter Discontinue: Patient from GPS overflow (2nd floor) transfered back to GPS unit (lock unit), per protocol nursing fiberglass boat assembly supervisor discontinue 1:1 sitter, staff continue to monitor patient for safety, continue with treatment plan.
[2017-02-15] MEDS: HYDROCODONE/APAP 5-325MG TABLET PO PRN ×2 (08:19→13:32)
[2017-02-15] MEDS: LEVOTHYROXINE SODIUM 88 MCG TABLET PO SCH (08:34)
[2017-02-15] MEDS: busPIRone 5 MG TABLET PO SCH ×3 (08:34→16:59)
[2017-02-15] MEDS: DULOXETINE 60 MG CAPSULE.DR PO SCH (08:34)
[2017-02-15] MEDS: CHOLECALCIFEROL 1,000 UNIT TABLET PO SCH (08:34)
[2017-02-15] MEDS: SULFAMETH/TRIMETH 800/160 MG TABLET PO SCH (08:34)
[2017-02-15] MEDS: FERROUS SULFATE 325 MG TABEC PO SCH (08:34)
[2017-02-15] MEDS: AMIODARONE HCL 200 MG TABLET PO SCH (08:34)
[2017-02-15] MEDS: CALCIUM CARBONATE 500 MG TABLET PO SCH (08:35)
[2017-02-15] MEDS: MIRALAX 17 GM POWD.PACK PO SCH (08:35)
[2017-02-15] MEDS: METOPROLOL TARTRATE 25 MG TABLET PO SCH (08:35)
[2017-02-15] MEDS: NIFEdipine XL 30 MG TABSR PO SCH (08:35)
--- NOTE | 2017-02-15 12:07 | NUR ---
Pipe Setter The patient was assessed today by Sheyla Lucas, account services representative from [facility] at 10:15 am.
--- NOTE | 2017-02-15 12:10 | NUR ---
DC Note: The patient will be discharged today to [facility] [[address] [place] [address] ] via ambulance set up by [facility], contact: Rochelle Richardson . SW awaiting call from [facility] with pick-up time for the patient. Spoke with Sheyla at the facility who stated that they will accept the patient today. Spoke with the patients daughter Erika and she is aware and agreeable with the discharge plan. Spoke with the patient and she is aware and agreeable with the discharge plan. The patient will follow-up with bulb weeder Dr. Holly and psychiatrist Dr. Stone at the facility. The patient was provided with the brief intervention for substance abuse and was referred to [facility] , [facility] , and [facility] .
[2017-02-15 16:32] VITALS: BP 137/60
[2017-02-15] MEDS: RIVAROXABAN 15 MG TABLET PO SCH (17:00)
--- NOTE | 2017-02-15 17:30 | NUR ---
GPS: Nursing Notes: Discharge Notes: Patient is awake and responding to her, cooperative with nursing care, compliant with her medications, continue to follow staff directions, denies any SI/HI, denies any AH/VH, denies any pain or discomfort at this time, denies any SOB, discharge to [facility] at [address] [place] [address] , report given to nurse Demi SEYMOUR, her daughter Erika was inform of discharge, transported to facility via ambulance (set up by [facility]), salesperson pianos and organs: Rochelle Richardson . The patient will follow-up with copy director Dr. Holly and psychiatrist Dr. Stone at the facility. The patient was provided with the brief intervention for substance abuse and was referred to [facility] , [facility] , and [facility] .
--- NOTE | 2017-02-17 15:20 | NUR ---
DC Clinicals: ALIDA spoke with Shahrzad GILMORE with N and provided her with [place] clinicals. The patient was authorized through 02/14/17. AUTH# [id number]
== END 2017-02-15 17:30 | DRG 885 ==
LOC: ER 14:16 → GPS 19:31 → MED 02-06 16:02 → GPSOV 02-06 16:20 → GPS 02-14 18:00
PROVIDERS: ADMIT Psychiatry & Neurology Psychiatry; ATTEND Internal Medicine
DX: F25.0 Schizoaffective disorder, bipolar type (principal); N17.0 Acute kidney failure with tubular necrosis; F03.91 Unspecified dementia, unspecified severity, with behavioral disturbance; N39.0 Urinary tract infection, site not specified; E87.1 Hypo-osmolality and hyponatremia; Z22.322 Carrier or suspected carrier of Methicillin resistant Staphylococcus aureus; Z90.710 Acquired absence of both cervix and uterus; Z85.41 Personal history of malignant neoplasm of cervix uteri; Z91.5 Personal history of self-harm; Z79.01 Long term (current) use of anticoagulants; B96.20 Unspecified Escherichia coli [E. coli] as the cause of diseases classified elsewhere; G89.29 Other chronic pain; E03.9 Hypothyroidism, unspecified; J45.909 Unspecified asthma, uncomplicated; D64.9 Anemia, unspecified; F41.9 Anxiety disorder, unspecified; I48.91 Unspecified atrial fibrillation; K59.00 Constipation, unspecified; Z79.51 Long term (current) use of inhaled steroids; Z79.899 Other long term (current) drug therapy; K21.9 Gastro-esophageal reflux disease without esophagitis; Z91.81 History of falling; Z88.6 Allergy status to analgesic agent
CPT/HCPCS: 36415; 71010; 80307; 82306; 83735; 84100; 84443; 85025; 87077; 87086; 93005; 97161; 97165; A4663; G0480; G0480-TC; J7030